=== PATIENT | female | born 1940 | race African-American/Black ===

== ENCOUNTER → 2017-06-06 | Outpatient (CLI) | payer MEDICARE, OTHER ==
[~2017-06-06] MED LIST: ADVAIR 250-501 EACH IH; ADVIL PM CAPLE1 EACH PO; ALBUTEROL INHAL17 GM; ALBUTEROL NEB; ALBUTEROL2.5 MG/0.5 INH; ALBUTEROL2.5 MG/31 INH; AMARYL2 MG PO; AMARYL4 MG PO; ASPERDRINK81 MG PO; AVELOX 400 MG400 MG PO; AZELAST NASAL137 MC1 INH; AZITHROMYCIN 2250 MG PO; BENZONATATE200 MG PO; CEFPODOXIME PR200 M1 PO; DEPAKOTE ER500 MG PO; GLUCOPHAGE500 MG; GLUCOPHAGE500 MG PO; HYDROCODON-ACE1 EAC7 PO; HYDROCODONE-AC120 ML PO; JANUVIA100 MG PO; KEPPRA 500 MG500 M1 PO; KLOR-CON 1010 MEQ PO; LEVAQUIN 500 M500 MG PO; LEVEMIR SC; LOSARTAN-HCTZ1 EAC1 PO; MEDROLDOSEPACK PO; MELOXICAM7.5 MG PO; METFORMIN HCL500 MG PO; MOBIC7.5 MG PO; MUCINEX TA600 MG/TA1 PO; MUCINEX600 MG PO; NEXIUM40 MG; NIFEDICAL XL30 MG PO; NIFEDIPINE ER30 M1 PO; NORCO 5-325 TA1 EACH PO; NORFLEX100 MG PO; NOVOLIN 70100 UNIT/5 SQ; NOVOLIN R100 UNIT/1 SUBQ; NOVOLOG MI100 UNIT/2 SQ; NOVOLOG MI100 UNIT/2 SUBQ; NOVOLOG100 UNIT/1; PERCOCET 5-3251 EACH PO; PERCOCET PO; PREDNISONE 10 M10 M1; PREDNISONE 20 M20 M1 PO; PREDNISONE 20 M20 MG PO; PREDNISONE50 MG PO; PROAIR HFA8.5 GM INH; PROMETHAZINE-C120 ML PO; PROTONIX 20 MG20 M1 PO; PROTONIX40 M2 PO; PROVENTIL HFA6.7 G1 INH; REGLAN 10 MG TA10 MG PO; REQUIP 1 MG TABL1 M1 PO; SIMVASTATIN40 MG PO; SYMBICORT160 MCG/4. INH; TRAMADOL 50 MG50 MG PO; TUDORZA PRESS400 MCG INH; ULTRAM 50MG TAB50 MG PO; VITAMIN D3400 UNI2 PO; ZAFIRLUKAST20 MG PO; ZPAK PO
== END ==
LOC: RAD 16:53
DX: J44.9 Chronic obstructive pulmonary disease, unspecified (principal)

== ENCOUNTER → 2017-11-05 | Outpatient (CLI) | payer OTHER, BC | LOC: CAT 10-31 13:48 | DX: I25.10 Atherosclerotic heart disease of native coronary artery without angina pectoris (principal); R91.1 Solitary pulmonary nodule; J44.9 Chronic obstructive pulmonary disease, unspecified; G47.33 Obstructive sleep apnea (adult) (pediatric); J98.11 Atelectasis; I70.0 Atherosclerosis of aorta ==

== ENCOUNTER 2018-08-07 08:42 | Emergency (ER) | payer MEDICARE ==
[~2018-08-07] VITALS: Ht 165.1 cm; Wt 117.9 kg
[2018-08-07] MEDS ORDERED: ULTRAM 50MG TAB50 MG PO (11:22)
== END 2018-08-07 11:45 | disposition home or self-care (01) ==
LOC: ER 08:42
DX: M79.662 Pain in left lower leg (principal); M79.89 Other specified soft tissue disorders; J45.909 Unspecified asthma, uncomplicated; E11.9 Type 2 diabetes mellitus without complications; G47.30 Sleep apnea, unspecified; J44.9 Chronic obstructive pulmonary disease, unspecified; E78.00 Pure hypercholesterolemia, unspecified; Z79.4 Long term (current) use of insulin; Z90.710 Acquired absence of both cervix and uterus

== ENCOUNTER → 2018-08-21 | Outpatient (CLI) | payer MEDICARE | LOC: RAD 11:11 | DX: J98.6 Disorders of diaphragm (principal) ==

== ENCOUNTER 2018-09-20 09:10 | Emergency (ER) | payer MEDICARE ==
[~2018-09-20] VITALS: Ht 165.1 cm; Wt 120.2 kg
[2018-09-20 09:18] VITALS: BP 173/68
[2018-09-20] MEDS ORDERED: ATORVASTATIN CA40 MG PO (09:21)
[2018-09-20] MEDS ORDERED: LOPRESSOR50 MG PO (09:22)
[2018-09-20] MEDS ORDERED: VESICARE10 M1 PO (09:23)
[2018-09-20] MEDS ORDERED: ANTIVERT25 MG PO (09:26)
[2018-09-20 09:55] LABS: URINE BILIRUBIN NEGATIVE (Negative); URINE BLOOD TRACE (Negative); URINE COLOR YELLOW; URINE GLUCOSE-RANDOM* NEGATIVE (Negative); URINE KETONES NEGATIVE (Negative); URINE NITRITE-REFLEX NEGATIVE (Negative); URINE PROTEIN (DIPSTICK) NEGATIVE (Negative)
[2018-09-20 09:56] LABS: URINE CLARITY HAZY; URINE LEUKOCYTES-REFLEX 1+ (Negative)
[2018-09-20] MEDS ORDERED: PYRIDIUM200 MG PO (10:07)
[2018-09-20] MEDS ORDERED: BACTRIM DS TAB1 EACH PO (10:07)
[2018-09-20 10:17] LABS: CASTS None Seen /LPF (None Seen); CRYSTALS None Seen /LPF (None Seen); SQUAMOUS >10 Many /LPF (0-3)
[2018-09-20 10:18] LABS: BACTERIA-REFLEX >30 Many /HPF (None Seen); URINE RBC 0-2 Rare /HPF (0-2)
== END 2018-09-20 10:34 | disposition home or self-care (01) ==
LOC: ER 09:10
PROVIDERS: Emergency Medicine
DX: N30.00 Acute cystitis without hematuria (principal); J44.9 Chronic obstructive pulmonary disease, unspecified; E11.9 Type 2 diabetes mellitus without complications; G47.30 Sleep apnea, unspecified; E78.00 Pure hypercholesterolemia, unspecified; Z90.710 Acquired absence of both cervix and uterus

== ENCOUNTER 2019-01-05 08:31 | Emergency (ER) | payer OTHER ==
[~2019-01-05] VITALS: Ht 165.1 cm; Wt 117.9 kg
[~2019-01-05 08:31] MED LIST changes: +ANTIVERT25 MG PO; +ATORVASTATIN CA40 MG PO; +BACTRIM DS TAB1 EACH PO; +LOPRESSOR50 MG PO; +PYRIDIUM200 MG PO; +VESICARE10 M1 PO
[2019-01-05] MEDS ORDERED: KLOR-CON 1010 MEQ PO (08:56)
[2019-01-05] MEDS ORDERED: REQUIP 1 MG TABL1 M1 PO (08:57)
[2019-01-05] MEDS ORDERED: NEURONTIN600 MG PO (08:58)
[2019-01-05] MEDS ORDERED: SYMBICORT160 MCG/4. INH (08:59)
[2019-01-05] MEDS ORDERED: CIPRO250 M2 PO (09:05)
[2019-01-05] MEDS ORDERED: TOLTERODINE TART4 MG PO (09:07)
[2019-01-05 10:46] LABS: LYMPHOCYTES 9.7 % (24.0-44.0); MCHC 32.1 g/dL (28.0-37.0); RDW 16.6 % (10.5-14.5)
[2019-01-05 10:48] LABS: ABSOLUTE NEUTROPHILS 7.9 thou/uL (1.4-8.2); BASOPHILS 0.4 % (0.0-2.0); EOSINOPHILS 1.6 % (0.0-3.0); HEMATOCRIT 36.3 % (37.0-47.0); HEMOGLOBIN 11.6 gm/dL (12.0-15.0); MCH 26.5 pg (26.0-34.0); MCV 82.6 fL (80.0-100.0); PLATELET COUNT 251 thou/uL (150-400); POLYS 80.3 % (36.0-66.0); RBC 4.39 mil/uL (4.20-5.00); WBC 9.8 thou/uL (4.0-11.0)
[2019-01-05 11:00] LABS: ANION GAP 9 mmol/L (7-16); BUN 13 mg/dL (7-18); CALCIUM 9.1 mg/dL (8.5-10.1); CHLORIDE 99 mmol/L (98-107); CO2 30 mmol/L (21-32); CREATININE 0.8 mg/dL (0.6-1.0); GLUCOSE 109 mg/dL (74-106); POTASSIUM 3.7 mmol/L (3.5-5.1); SODIUM 138 mmol/L (136-145)
[2019-01-05 11:07] LABS: ALBUMIN 3.5 g/dL (3.4-5.0); SGOT 11 U/L (15-37); SGPT 18 U/L (30-65); TOTAL BILIRUBIN 0.5 mg/dL (<0.1-1.0); TOTAL PROTEIN 7.8 g/dL (6.4-8.2); TROPONIN-I <0.06 ng/mL (<0.06)
[2019-01-05 11:36] VITALS: BP 176/54
[2019-01-05] MEDS ORDERED: HYDROCODONE-AP1 EAC6 PO (11:57)
[2019-01-05] MEDS ORDERED: LIDOCAINE PAIN1 EACH TOP (11:57)
--- NOTE | 2019-01-05 17:09 | EKG ---
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1940 Requested By: Colleen Palacios Order Number: [id number] MD: Marshal Kearney Measurements Intervals [place] Rate: 70 P: 6 [place]: 182 QRS: -26 QRSD: 94 T: -2 QT: 417 QTc: 450 Interpretive Statements Sinus rhythm Borderline left axis deviation Borderline T abnormalities, inferior leads Compared to ECG 05/16/2015 14:03:21 No significant change was found Electronically Signed On 01-05-2019 17:09:29 CDT by Marshal Kearney [email or web address] ��������������������������������������������� <ELECTRONICALLY SIGNED> ���������������������������������������� By: Marshal Kearney MD, LOCATED WITHIN [facility] ��������������������������������������������� 01/05/19 1709 D: [id number] Marshal Kearney MD, FACC /EPI
== END 2019-01-05 12:15 | disposition home or self-care (01) ==
LOC: ER 08:31
PROVIDERS: Physician Assistant
DX: S22.42XA Multiple fractures of ribs, left side, initial encounter for closed fracture (principal); J45.909 Unspecified asthma, uncomplicated; E11.9 Type 2 diabetes mellitus without complications; G47.30 Sleep apnea, unspecified; E78.00 Pure hypercholesterolemia, unspecified; J44.9 Chronic obstructive pulmonary disease, unspecified; Z90.710 Acquired absence of both cervix and uterus; Z79.4 Long term (current) use of insulin; W01.0XXA Fall on same level from slipping, tripping and stumbling without subsequent striking against object, initial encounter; Y93.89 Activity, other specified; Y92.89 Other specified places as the place of occurrence of the external cause; Y99.8 Other external cause status

== ENCOUNTER 2019-03-21 08:12 | Emergency (ER) | payer OTHER ==
[~2019-03-21] VITALS: Ht 165.1 cm; Wt 122.5 kg
[~2019-03-21 08:12] MED LIST changes: +CIPRO250 M2 PO; +HYDROCODONE-AP1 EAC6 PO; +LIDOCAINE PAIN1 EACH TOP; +NEURONTIN600 MG PO; +TOLTERODINE TART4 MG PO
[2019-03-21] MEDS ORDERED: NORCO 5-325 TA1 EACH PO (10:10)
[2019-03-21] MEDS ORDERED: MOBIC15 MG PO (10:11)
[2019-03-21 10:25] VITALS: BP 157/69
--- NOTE | 2019-03-23 08:37 | EKG ---
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1940 Requested By: Tali Fritz Order Number: [id number] MD: Gerald Lancaster Measurements Intervals [place] Rate: 82 P: 47 DE: 190 QRS: -32 QRSD: 91 T: 19 QT: 375 QTc: 438 Interpretive Statements Sinus rhythm Left axis deviation Compared to ECG 01/05/2019 10:34:54 T-wave abnormality no longer present Electronically Signed On 03-23-2019 8:37:20 CDT by Gerald Lancaster [email or web address] ��������������������������������������������� <ELECTRONICALLY SIGNED> ���������������������������������������� By: Gerald Lancaster MD ��������������������������������������������� 03/23/19 0837 0839 8 Gerald Lancaster MD /DOC
== END 2019-03-21 10:17 | disposition home or self-care (01) ==
LOC: ER 08:12
DX: S32.030A Wedge compression fracture of third lumbar vertebra, initial encounter for closed fracture (principal); M54.16 Radiculopathy, lumbar region; E11.9 Type 2 diabetes mellitus without complications; G47.30 Sleep apnea, unspecified; J44.9 Chronic obstructive pulmonary disease, unspecified; E78.00 Pure hypercholesterolemia, unspecified; Z79.4 Long term (current) use of insulin; Z90.710 Acquired absence of both cervix and uterus; X58.XXXA Exposure to other specified factors, initial encounter; Y93.89 Activity, other specified; Y92.89 Other specified places as the place of occurrence of the external cause; Y99.8 Other external cause status

== ENCOUNTER 2019-10-05 08:10 | Emergency (ER) | payer OTHER ==
[~2019-10-05] VITALS: Ht 157.5 cm; Wt 117.9 kg
[~2019-10-05 08:10] MED LIST changes: +MOBIC15 MG PO
[2019-10-05 09:12] LABS: URINE BILIRUBIN NEGATIVE (Negative); URINE BLOOD NEGATIVE (Negative); URINE COLOR YELLOW; URINE GLUCOSE-RANDOM* NEGATIVE (Negative); URINE KETONES NEGATIVE (Negative); URINE LEUKOCYTES-REFLEX NEGATIVE (Negative); URINE NITRITE-REFLEX NEGATIVE (Negative); URINE PROTEIN (DIPSTICK) NEGATIVE (Negative); URINE SPECIFIC GRAVITY 1.015 (1.005-1.035); URINE UROBILINOGEN 0.2 E.U./dl (0.2-1.0)
[2019-10-05 09:13] LABS: URINE CLARITY SL HAZY
[2019-10-05 10:35] LABS: ABSOLUTE NEUTROPHILS 6.9 thou/uL (1.4-8.2); BASOPHILS 0.4 % (0.0-2.0); EOSINOPHILS 2.2 % (0.0-3.0); HEMATOCRIT 34.6 % (37.0-47.0); HEMOGLOBIN 11.2 gm/dL (12.0-15.0); LYMPHOCYTES 11.7 % (24.0-44.0); MCH 27.5 pg (26.0-34.0); MCHC 32.3 g/dL (28.0-37.0); MCV 85.1 fL (80.0-100.0); MONOCYTES 7.6 % (1.0-8.0); PLATELET COUNT 309 thou/uL (150-400); POLYS 78.1 % (36.0-66.0); RBC 4.06 mil/uL (4.20-5.00); RDW 15.9 % (10.5-14.5); WBC 8.9 thou/uL (4.0-11.0)
[2019-10-05 10:40] LABS: ANION GAP 9 mmol/L (7-16); BUN 10 mg/dL (7-18); CALCIUM 9.7 mg/dL (8.5-10.1); CHLORIDE 102 mmol/L (98-107); CO2 29 mmol/L (21-32); CREATININE 0.7 mg/dL (0.6-1.0); GLUCOSE 65 mg/dL (74-106); POTASSIUM 3.9 mmol/L (3.5-5.1); SODIUM 140 mmol/L (136-145)
[2019-10-05 10:50] LABS: ALBUMIN 3.4 g/dL (3.4-5.0); DIRECT BILIRUBIN 0.2 mg/dL (<0.1-0.2); SGOT 12 U/L (15-37); SGPT 17 U/L (30-65); TOTAL BILIRUBIN 0.6 mg/dL (<0.1-1.0); TOTAL PROTEIN 8.1 g/dL (6.4-8.2); TROPONIN-I <0.06 ng/mL (<0.06)
[2019-10-05] MEDS ORDERED: MOBIC15 MG PO (12:24)
[2019-10-05 12:33] VITALS: BP 185/87
--- NOTE | 2019-10-06 08:49 | EKG ---
[place] [address] [facility] [place] [address] ELECTROCARDIOGRAM REPORT Name: REJI OLVERA [facility] [id number] Admission: 10/05/19 Attend Phys: Discharge: 10/05/19 Date of : 40 Report #: [id number] THIS REPORT FOR: //name// [facility] ED Test Date: 2019-10-05 Test Time: 08:27:53 Pat Name: REJI OLVERA Department: Room: Gender: F General Contractor: HALIEADRIANNA : 1940 Requested By: Tali Fritz Order Number: [id number] MD: Marshal Kearney Measurements Intervals [place] Rate: 75 P: 2 [place]: 185 QRS: -13 QRSD: 102 T: 29 QT: 395 QTc: 442 Interpretive Statements Sinus rhythm Occasional ventricular premature complexes Compared to ECG 03/21/2019 08:39:35 Ventricular premature complex(es) now present Electronically Signed On 10-06-2019 8:49:24 SPORTS INSTRUCTOR by Marshal Kearney [email or web address] <ELECTRONICALLY SIGNED> By: Marshal Kearney MD, [facility] 10/06/19 0849 0827 6 Marshal Kearney MD, FACC /EPI
== END 2019-10-05 12:34 | disposition home or self-care (01) ==
LOC: ER 08:10
PROVIDERS: Emergency Medicine
DX: R07.89 Other chest pain (principal); R06.00 Dyspnea, unspecified; M79.10 Myalgia, unspecified site; R30.0 Dysuria; E11.9 Type 2 diabetes mellitus without complications; E78.00 Pure hypercholesterolemia, unspecified; J45.909 Unspecified asthma, uncomplicated; J44.9 Chronic obstructive pulmonary disease, unspecified; Z79.4 Long term (current) use of insulin; Z90.710 Acquired absence of both cervix and uterus

== ENCOUNTER 2019-12-03 09:55 | Emergency (ER) | payer OTHER ==
[~2019-12-03] VITALS: Ht 165.1 cm; Wt 111.6 kg
[2019-12-03 12:16] LABS: ABSOLUTE NEUTROPHILS 8.9 thou/uL (1.4-8.2); BASOPHILS 0.4 % (0.0-2.0); EOSINOPHILS 2.5 % (0.0-3.0); HEMATOCRIT 35.1 % (37.0-47.0); LYMPHOCYTES 10.6 % (24.0-44.0); MCH 26.8 pg (26.0-34.0); MCHC 31.4 g/dL (28.0-37.0); MCV 85.3 fL (80.0-100.0); MONOCYTES 6.5 % (1.0-8.0); PLATELET COUNT 263 thou/uL (150-400); RBC 4.11 mil/uL (4.20-5.00); RDW 15.6 % (10.5-14.5); WBC 11.2 thou/uL (4.0-11.0)
[2019-12-03 12:26] LABS: ANION GAP 10 mmol/L (7-16); BUN 9 mg/dL (7-18); CHLORIDE 100 mmol/L (98-107); CO2 28 mmol/L (21-32); CREATININE 0.7 mg/dL (0.6-1.0); GLUCOSE 60 mg/dL (74-106); POTASSIUM 4.1 mmol/L (3.5-5.1); SODIUM 138 mmol/L (136-145)
[2019-12-03 12:36] LABS: ALBUMIN 3.4 g/dL (3.4-5.0); SGOT 17 U/L (15-37); SGPT 14 U/L (30-65); TOTAL BILIRUBIN 0.6 mg/dL (<0.1-1.0); TOTAL PROTEIN 7.7 g/dL (6.4-8.2); TROPONIN-I <0.06 ng/mL (<0.06)
[2019-12-03] MEDS ORDERED: LASIX 20 MG TAB20 MG PO (13:44)
[2019-12-03 13:48] VITALS: BP 168/71
--- NOTE | 2019-12-03 16:19 | EKG ---
[facility] [place] [address] ELECTROCARDIOGRAM REPORT Name: REJI OLVERA Room #: DEP [facility]#: [id number] Admission: 12/03/19 Attend Phys: Discharge: 12/03/19 Date of : 40 Report #: [id number] THIS REPORT FOR: cc: Gurdeep Cleary James A. DO Couchonnal, Luis F. MD ~ THIS REPORT FOR: //name// 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 Presser: giana : 1940 Requested By: Colleen Palacios Order Number: [id number] MD: Gerald Lancaster Measurements Intervals [place] Rate: 84 P: 44 [place]: 181 QRS: -32 QRSD: 89 T: 17 QT: 395 QTc: 467 Interpretive Statements Sinus rhythm Left axis deviation Compared to ECG 10/05/2019 08:27:53 Left-axis deviation now present Ventricular premature complex(es) no longer present Electronically Signed On 12-03-2019 16:18:20 PLANT ANATOMIST by Gerald Lancaster [email or web address] <ELECTRONICALLY SIGNED> By: Gerald Lancaster MD 12/03/19 1618 1221 1221 Gerald Lancaster MD /EPI
== END 2019-12-03 14:00 | disposition home or self-care (01) ==
LOC: ER 09:55
PROVIDERS: Physician Assistant
DX: I50.9 Heart failure, unspecified (principal); R60.0 Localized edema; E11.9 Type 2 diabetes mellitus without complications; E78.00 Pure hypercholesterolemia, unspecified; J45.909 Unspecified asthma, uncomplicated; J44.9 Chronic obstructive pulmonary disease, unspecified; G47.30 Sleep apnea, unspecified; Z90.710 Acquired absence of both cervix and uterus

== ENCOUNTER 2019-12-17 11:08 | Inpatient (IN) | payer OTHER ==
[~2019-12-17] VITALS: Ht 165.1 cm; Wt 121.1 kg
[~2019-12-17 11:08] MED LIST changes: +LASIX 20 MG TAB20 MG PO
[2019-12-17 11:13] VITALS: BP 165/63
--- NOTE | 2019-12-17 11:25 | NUR ---
PT PROVIDING A URINE SAMPLE
--- NOTE | 2019-12-17 11:54 | NUR ---
PT REFUSED TO HAVE IV OR BLOOD DRAWN FROM WRIST OR HANDS. INSIST ON HAVING IV TEAM GET IV ACCESS. INFORMED PROVIDER
[2019-12-17 14:21] LABS: ABSOLUTE NEUTROPHILS 8.6 thou/uL (1.4-8.2); BASOPHILS 0.5 % (0.0-2.0); EOSINOPHILS 2.3 % (0.0-3.0); HEMATOCRIT 35.6 % (37.0-47.0); HEMOGLOBIN 11.2 gm/dL (12.0-15.0); LYMPHOCYTES 10.5 % (24.0-44.0); MCH 26.9 pg (26.0-34.0); MCHC 31.5 g/dL (28.0-37.0); MCV 85.5 fL (80.0-100.0); MONOCYTES 7.3 % (1.0-8.0); PLATELET COUNT 259 thou/uL (150-400); POLYS 79.4 % (36.0-66.0); RBC 4.16 mil/uL (4.20-5.00); WBC 10.8 thou/uL (4.0-11.0)
[2019-12-17 14:34] LABS: ANION GAP 5 mmol/L (7-16); BUN 9 mg/dL (7-18); CALCIUM 8.9 mg/dL (8.5-10.1); CHLORIDE 99 mmol/L (98-107); CO2 30 mmol/L (21-32); CREATININE 0.7 mg/dL (0.6-1.0); GLUCOSE 93 mg/dL (74-106); POTASSIUM 3.8 mmol/L (3.5-5.1); SODIUM 134 mmol/L (136-145)
[2019-12-17 14:44] LABS: SGOT 13 U/L (15-37); SGPT 10 U/L (30-65); TOTAL BILIRUBIN 0.4 mg/dL (<0.1-1.0); TOTAL PROTEIN 7.1 g/dL (6.4-8.2); TROPONIN-I <0.06 ng/mL (<0.06)
[2019-12-17 15:18] VITALS: BP 176/93
[2019-12-17 15:44] LABS: URINE BILIRUBIN NEGATIVE (Negative); URINE BLOOD NEGATIVE (Negative); URINE CLARITY CLEAR; URINE COLOR YELLOW; URINE GLUCOSE-RANDOM* NEGATIVE (Negative); URINE KETONES NEGATIVE (Negative); URINE LEUKOCYTES-REFLEX NEGATIVE (Negative); URINE PROTEIN (DIPSTICK) NEGATIVE (Negative); URINE SPECIFIC GRAVITY 1.015 (1.005-1.035); URINE UROBILINOGEN 0.2 E.U./dl (0.2-1.0)
[2019-12-17 15:45] LABS: URINE NITRITE-REFLEX POSITIVE (Negative)
[2019-12-17 15:49] LABS: BACTERIA-REFLEX >30 Many /HPF (None Seen); SQUAMOUS 4-10 Moderate /LPF (0-3)
[2019-12-17 15:50] LABS: CASTS None Seen /LPF (None Seen); CRYSTALS None Seen /LPF (None Seen); URINE RBC None Seen /HPF (0-2)
[2019-12-17 15:58] VITALS: BP 150/58
[2019-12-17 16:34] VITALS: BP 157/64
--- NOTE | 2019-12-17 20:03 | NUR ---
Pt came to unit from ED approx 1700. Pt a&ox4. On 5L O2 at home as well. Wears Cpap at night. Swelling and some erythema on right lower extremity. Pt's family states they will obtain patient's medicine list. Report given to yandy MENDOZA.
[2019-12-17 20:10] VITALS: BP 160/65
[2019-12-17] MEDS ORDERED: TOPROL XL50 MG PO (20:21)
[2019-12-17] MEDS ORDERED: OXYBUTYNIN 5 MG5 M2 PO (20:22)
[2019-12-17] MEDS ORDERED: REQUIP 1 MG TABL1 M1 PO (20:22)
[2019-12-18 04:00] VITALS: BP 142/69
--- NOTE | 2019-12-18 04:09 | NUR ---
ALERT AND ORIENTED. DTR IN ROOM. USING CPAP AT [facility]. PT GETS TO BSC WITH ASSIST X 1. VOIDING OKAY. RLE WITH SOME SWELLING, WARMTH AND TENDERNESS.ON IV ABTS. AFEBRILE.
[2019-12-18 06:11] LABS: HEMATOCRIT 34.9 % (37.0-47.0); MCH 26.7 pg (26.0-34.0); MCHC 31.6 g/dL (28.0-37.0); MCV 84.5 fL (80.0-100.0); RBC 4.13 mil/uL (4.20-5.00); RDW 15.5 % (10.5-14.5)
[2019-12-18 06:31] LABS: CALCIUM 9.4 mg/dL (8.5-10.1); CREATININE 0.7 mg/dL (0.6-1.0); MAGNESIUM 1.3 mg/dL (1.8-2.4); POTASSIUM 3.9 mmol/L (3.5-5.1)
[2019-12-18 07:40] VITALS: BP 157/77
--- NOTE | 2019-12-18 09:35 | EKG ---
[facility] [place] [address] ELECTROCARDIOGRAM REPORT Name: REJI OLVERA Room #: 436-P ADM IN M.R.#: [id number] Admission: 12/17/19 Attend Phys: Thomas Swenson MD Discharge: Date of : 40 Report #: [id number] THIS REPORT FOR: cc: Gurdeep Cleary James A. DO Lundgren, Craig H. 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
--- NOTE | 2019-12-18 11:11 | NUR ---
PT RESTING IN BED. TOOK AM MEDS. GAVE PRN PAIN MED. BLOOD SUGARS CHECKED AND INSULIN ORDERED. PT TO WORK WITH PT/OT.
--- NOTE | 2019-12-18 15:15 | NUR ---
PATIENT WENT TO RADIOLOGY TO HAVE X-RAY OF RIGHT SHOULDER PT HAS PAIN IN IT. STATES HAS NOT FALLEN.
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
[2019-12-18 17:05] VITALS: BP 147/67
[2019-12-18 18:33] VITALS: BP 167/77
--- NOTE | 2019-12-18 18:42 | NUR ---
PATIENT TRANSFERRED TO [facility]OM 406 ALL MEDS GIVEN BEFORE TRANSFER. CHARTING COMPLETED. ALL BELONGINGS PACKED AND TRANSFERRED TO ROOM.
--- NOTE | 2019-12-18 19:22 | NUR ---
PT WAS TRANSFERRED FROM AROUND 1829. REPORT RECEIVED AND PT SETTLED. NOC RN UPDATED. CARE TRANSFERRED TO INCOMING RN AT THIS TIME.
[2019-12-18 19:30] VITALS: BP 150/63
--- NOTE | 2019-12-19 05:05 | NUR ---
ASSUMED CARE OF PATIENT AT SHIFT CHANGE. ASSESSMENT CHARTED. MEDICATIONS GIVEN PER DEC. PATIENT IS A&OX4, VSS, DENIES PAIN. PATIENTS O2 SATS WNL ON 5L NC; REQUESTED RT TO PUT CPAP IN PLACE FOR TONIGHT. CONTINUOUS MONITORING ON, PATIENT DROPS TO 89% FOR 1-2 SECONDS BUT COMES BACK UP TO BASELINE; ONLY HAPPENED 3X THIS SHIFT. PATIENT WAS UP TO BSC X1 ASSIST AND TOLERATED FAIRLY WITH MINIMAL SOA. REDNESS AND TRACE EDEMA NOTED ON BLE. PERIPHERAL PULSES +2; SKIN IS WARM AND DRY TO TOUCH. PATIENT ENCOURAGED TO ELEVATE LOWER EXTREMITIES WHILE RESTING IN BED. IV ABX INFUSING ON R FA; IV INTACT, SITE CLEAR. PATIENT MAKES NEEDS KNOWN, DENIES ANY AT THIS TIME. FALL PRECAUTIONS IN PLACE. WILL CONTINUE TO MONITOR AND FOLLOW PLAN OF CARE
[2019-12-19 08:30] VITALS: BP 134/78
--- NOTE | 2019-12-19 12:29 | NUR ---
PT RESTING IN BEDSIDE CHAIR. ALERT XS 4. NO PAIN AT PRESENT. BLOOD SUGARS MONITORED AND SLIDING SCALE INSULIN ORDERED. O2 AT 5L/NC. PT IS CONT OF B&B. PLEASANT AND COOPERATIVE WITH CARE. FAMILY VISITING.
--- NOTE | 2019-12-19 13:49 | NUR ---
DID NOT GIVE AMPICILLIN IV BECAUSE URINE CULTURE SHOWS [facility] CALLED DR RDZ HE IS GOING TO PUT PATIENT ON PO ABT THAT IS SENSITIVE.
[2019-12-19 20:00] VITALS: BP 182/86
[2019-12-19 22:27] VITALS: BP 168/78
--- NOTE | 2019-12-20 04:17 | NUR ---
PATIENT ALERT AND ORIENTED X4. UP ADLIB IN ROOM WITH SBA. DENIES PAIN. BS MONITORED PER ORDER. 02NC 5L WHEN NOT ON BIPAP DURING THE NIGHT. COOPERATIVE WITH CARE. RESTING QUIETLY. WILL MONITOR.
--- NOTE | 2019-12-20 04:52 | NUR ---
ON 12/19/2019 THIS NURSE AGREES WITH NOTES AND ASSESSMENT OF ORDER PLANNER ON THIS PATIENT.
[2019-12-20 07:17] VITALS: BP 169/62
[2019-12-20 13:15] VITALS: BP 144/55
--- NOTE | 2019-12-20 17:59 | NUR ---
PATIENT HAS RESTED IN ROOM WITH LOT OF FAMILY COMING IN TO VISIT. SHE DID COMPLAIN OF PAIN IN THE AM AND PRN PAIN MEDICATION ADMININSTERED. IT WAS EFFECTIVE SHE DID NOT COMPLAIN THE REST OF THE DAY. WILL CONT WIHT PLAN OF CARE.
[2019-12-20 19:40] VITALS: BP 157/66
--- NOTE | 2019-12-21 04:16 | NUR ---
PATIENT ALERT AND ORIENTED X4. UP ADLIB IN ROOM AND TO BATHROOM. REMAINS ON 02NC DURING THE DAY AND BIPAP AT NIGHT. DENIES PAIN. BS MONITORED PER ORDER. COOPERATIVE WITH CARE. WILL MONITOR.
[2019-12-21 06:58] LABS: CALCIUM 9.3 mg/dL (8.5-10.1); CREATININE 0.7 mg/dL (0.6-1.0); POTASSIUM 3.8 mmol/L (3.5-5.1)
[2019-12-21 07:45] VITALS: BP 125/45
[2019-12-21] MEDS ORDERED: AUGMENTIN 875-1 EACH PO (10:02)
[2019-12-21] MEDS ORDERED: HYDROCODON-ACE1 EAC7 PO (10:02)
[2019-12-21] MEDS ORDERED: ACETAMINOPHEN325 M1 PO (10:02)
[2019-12-21 11:27] VITALS: BP 125/45
--- NOTE | 2019-12-21 13:16 | NUR ---
ASSUMED CARE OF PATIENT AT 0715, PATIENT ALERT AND ORIENTED X 4. UP WITH SBA, FALL RISK. FALL PRECAUTIONS IN PLACE. NO C/O PAIN AT THIS TIME. O2 AT 5 LITERS/NC IN PLACE, AND SHE WEARS AT HOME. THIS RN NOTIFIED DR RDZ OF B/P 125/45, HR 58, THIS RN HELD B/P MEDS, OK TO HOLD MEDS PER DR RDZ. BLOOD SUGAR MONITORING ORDERED, LAST BS 171, SHE WAS GIVEN 3 UNITS OF LISPRO PER SLIDING SCALE. DR RDZ HERE THIS AM, WILL DISCHARGE TO HOME WITH HOMEHEALTH. THIS RN WILL GO OVER ALL DISCHARGE PAPERWORK AND SEND ALL PERSONAL BELONGINGS WITH THE PATIENT.
--- NOTE | 2019-12-21 15:48 | NUR ---
DISCHARGE NOTE: JEFF reviewed chart and spoke with nursing and attending physician. Pt [facility] to [facility] and is medically stable for discharge home today. Orders written for HH. JEFF met with pt at bedside to provide update and discuss discharge plan. Pt declines HH services at this time. JEFF encouraged pt to contact her PCP if she needs HH after discharge. SW updated nursing. Pt's family to provide transportation home. JEFF is following to assist as needed with discharge planning.
== END 2019-12-21 15:41 | disposition home or self-care (01) | DRG 603 ==
LOC: ER 11:08 → EROBS 15:15 → 4S 15:15 → 4N 12-18 18:17 → ENTRNSPT 12-21 15:09 → EDTRNSPTSTS 12-21 15:12 → 4N 12-21 15:41
PROVIDERS: Physician Assistant; ADMIT Internal Medicine
PROC: 5A09357 Assistance with Respiratory Ventilation, Less than 24 Consecutive Hours, Continuous Positive Airway Pressure (ICD-10-PCS; principal; 2019-12-17)
PROC: 5A09357 Assistance with Respiratory Ventilation, Less than 24 Consecutive Hours, Continuous Positive Airway Pressure (ICD-10-PCS; 2019-12-18)
PROC: 5A09457 Assistance with Respiratory Ventilation, 24-96 Consecutive Hours, Continuous Positive Airway Pressure (ICD-10-PCS; 2019-12-19)
DX: L03.115 Cellulitis of right lower limb (principal); N39.0 Urinary tract infection, site not specified; J96.11 Chronic respiratory failure with hypoxia; Z68.41 Body mass index [BMI] 40.0-44.9, adult; E11.9 Type 2 diabetes mellitus without complications; G47.30 Sleep apnea, unspecified; J44.9 Chronic obstructive pulmonary disease, unspecified; K46.9 Unspecified abdominal hernia without obstruction or gangrene; E78.00 Pure hypercholesterolemia, unspecified; E66.01 Morbid (severe) obesity due to excess calories; G47.33 Obstructive sleep apnea (adult) (pediatric); I10 Essential (primary) hypertension; G40.409 Other generalized epilepsy and epileptic syndromes, not intractable, without status epilepticus; E78.5 Hyperlipidemia, unspecified; R29.6 Repeated falls; R63.4 Abnormal weight loss; G47.00 Insomnia, unspecified; B96.20 Unspecified Escherichia coli [E. coli] as the cause of diseases classified elsewhere; Z79.891 Long term (current) use of opiate analgesic; Z90.710 Acquired absence of both cervix and uterus; Z98.818 Other dental procedure status; Z99.81 Dependence on supplemental oxygen; Z79.2 Long term (current) use of antibiotics; Z79.84 Long term (current) use of oral hypoglycemic drugs; Z79.899 Other long term (current) drug therapy
CPT/HCPCS: 10091; 10102